=== PATIENT | female | born 1985 | race Hispanic/Latino ===

== ENCOUNTER 2023-08-22 19:45 | Emergency (ER) | payer BC ==
[2023-08-22] MEDS ORDERED: Hydrocodone-Acetamin 15 ML UDCUP PO SCH (21:00)
[2023-08-22] MEDS ORDERED: Hydrocodone-Acetamin 15 ML UDCUP ONE (21:08)
[2023-08-22 21:09] LABS: SARS-CoV-2 NAA Rapid Test Not Detected (NotDetected)
[2023-08-22] MEDS ORDERED: Ipratropium/Albuterol 3 ML NEB ONE (21:16)
== END 2023-08-22 23:23 | disposition home or self-care (01) ==
LOC: CSHERS 19:45
DX: J20.9 Acute bronchitis, unspecified (principal); Z20.822 Contact with and (suspected) exposure to COVID-19
CPT/HCPCS: 71046; 93005; J7620

== ENCOUNTER 2023-10-15 14:57 | Emergency (ER) | payer BC ==
[2023-10-15 15:57] LABS: #Eosinphils 0.2 10x3/uL (0.0-0.5); #Monocytes 0.7 10x3/uL (0.0-1.1); #Neutrophils 4.6 10x3/uL (1.5-8.4); %Basophils 0.5 % (0.0-2.0); %Eosinophils 2.6 % (0.0-6.0); %Lymphocytes 29.1 % (18.0-47.0); %Monocytes 8.6 % (0.0-10.0); %Neutrophils 58.8 % (40.0-75.0); Hematocrit 38.3 % (34.9-44.5); Hemoglobin 12.7 g/dL (12.0-15.5); Mean Corpuscular HGB CONC 33.2 g/dL (32.0-36.0); Mean Corpuscular Hemoglobin 31.3 pg (27.0-33.0); Mean Corpuscular Volume 94.3 fl (81.6-98.3); Mean Platelet Volume 10.2 fl (7.4-10.4); Platelet Count 246 10x3/uL (150-450); RBC Distribution Width 12.8 % (11.5-14.5); Red Blood Cell (RBC) Count 4.06 10x6/uL (3.90-5.03); White Blood Cell (WBC) Count 7.8 10x3/uL (3.5-10.5)
[2023-10-15] MEDS ORDERED: Ketorolac Tromethamine 30 MG (1 mL) VIAL ONE (16:04)
[2023-10-15] MEDS ORDERED: Lorazepam 2 MG/ML VIAL ONE (16:04)
[2023-10-15 16:07] LABS: BHCG - Serum Negative (NEGATIVE); Pregs Control Background? CLEAR/WHITE (CLR/WHITE); Pregs Control Bar Appear? YES (CONTROL BAR)
[2023-10-15 16:13] LABS: ALT (SGPT) 21 U/L (8-55); AST (SGOT) 40 U/L (5-34); Albumin 3.9 g/dL (3.5-5.0); Alkaline Phosphatase 52 U/L (40-110); Anion Gap 10 mmol/L (10-20); BUN (Urea Nitrogen) 9 mg/dL (7.0-18.7); CK (CPK) 1471 U/L (29-168); Calc. Creatinine Clearance 0 mL/min (70-130); Calcium 8.6 mg/dL (7.8-10.44); Carbon Dioxide 24 mmol/L (22-29); Chloride 107 mmol/L (98-107); Estimated GFR 90; Globulin 3.4 g/dL (2.4-3.5); Glucose 98 mg/dL (70-105); Protein, Total 7.3 g/dL (6.0-8.3)
[2023-10-15 16:17] LABS: Potassium 4.3 mmol/L (3.5-5.1); Sodium 137 mmol/L (136-145)
== END 2023-10-15 18:15 | disposition home or self-care (01) ==
LOC: CSHERS 14:57
DX: M62.82 Rhabdomyolysis (principal)
CPT/HCPCS: 36415; 80053; 82550; 84703; 85025; 93970; 96374; 96375; J1885; J2060

== ENCOUNTER 2024-02-05 12:39 | Observation (INO) | payer BC ==
[2024-02-05 13:45] LABS: ALT (SGPT) 12 U/L (8-55); AST (SGOT) 14 U/L (5-34); Albumin 3.7 g/dL (3.5-5.0); Alkaline Phosphatase 63 U/L (40-110); Anion Gap 13 mmol/L (10-20); BUN (Urea Nitrogen) 8 mg/dL (7.0-18.7); Bilirubin, Total 1.3 mg/dL (0.2-1.2); Calc. Creatinine Clearance 0 mL/min (70-130); Calcium 9.1 mg/dL (7.8-10.44); Carbon Dioxide 22 mmol/L (22-29); Chloride 104 mmol/L (98-107); Estimated GFR 93; Globulin 3.8 g/dL (2.4-3.5); Glucose 92 mg/dL (70-105); Potassium 3.9 mmol/L (3.5-5.1); Protein, Total 7.5 g/dL (6.0-8.3); Sodium 135 mmol/L (136-145)
[2024-02-05 13:53] LABS: #Basophils 0.02 10x3/uL (0.0-0.2); #Eosinphils 0.08 10x3/uL (0.0-0.5); #Monocytes 0.56 10x3/uL (0.0-1.1); #Neutrophils 4.42 10x3/uL (1.5-8.4); %Basophils 0.3 % (0.0-2.0); %Eosinophils 1.2 % (0.0-6.0); %Lymphocytes 21.2 % (18.0-47.0); %Monocytes 8.7 % (0.0-10.0); %Neutrophils 68.3 % (40.0-75.0); Hematocrit 37.5 % (34.9-44.5); Hemoglobin 12.7 g/dL (12.0-15.5); Mean Corpuscular HGB CONC 33.9 g/dL (32.0-36.0); Mean Corpuscular Hemoglobin 31.9 pg (27.0-33.0); Mean Corpuscular Volume 94.2 fl (81.6-98.3); Platelet Count 194 10x3/uL (150-450); RBC Distribution Width 12.8 % (11.5-14.5); Red Blood Cell (RBC) Count 3.98 10x6/uL (3.90-5.03); White Blood Cell (WBC) Count 6.5 10x3/uL (3.5-10.5)
[2024-02-05] MEDS ORDERED: Dicyclomine 20 MG/2 ML VIAL ONE (14:20)
[2024-02-05 15:26] LABS: Bilirubin Neg (Negative); Blood, Urine 150 (Negative); Clarity Clear (Clear); Glucose, Urine (Dipstick) Normal (Negative); Ketone, Urine Negative (Negative); Leukocyte Negative (Negative); Nitrite Negative (Negative); Protein, Urine (Dipstick) Negative (Neg-Trace); Specific Gravity, Urine 1.025 (1.005-1.030); Urobilinogen Normal mg/dL (Less than 2)
[2024-02-05 15:34] LABS: CAUTI Indications for Culture Dysuria,urgency,freq; Squamous Epithelial 0-3 HPF (0-3); WBC/HPF 0-3 HPF (0-3)
[2024-02-05 15:35] LABS: Bacteria/HPF Rare-Few HPF (None Seen); Mucous/LPF Rare LPF (<2+)
[2024-02-05 15:36] LABS: Urine Culture Reflex No No
[2024-02-05] MEDS ORDERED: TETANUS, DIPHTHERIA TOX,ADULT (TDVAX) 0.5 ML VIAL IM ONE (16:19)
[2024-02-05] MEDS ORDERED: Morphine 4 MG/ML VIAL SLOW IVP PRN (16:19)
[2024-02-05] MEDS ORDERED: Ondansetron PF 4 MG/2 ML Vial IVP PRN (16:19)
[2024-02-05] MEDS ORDERED: Ondansetron ODT 4 MG TAB PO PRN (16:19)
[2024-02-05 17:42] LABS: Pregnancy Test - Urine (BHCG) Negative (Negative); Pregu Control Background? CLEAR/WHITE (CLR/WHITE); Pregu Control Bar Appear? YES (CONTROL BAR); Specific Gravity 1.025 (1.002-1.036)
[2024-02-05 18:18] VITALS: BMI 37.5
[2024-02-05] MEDS: Sodium Chloride 0.9% 1,000 ML IV SCH (19:15)
[2024-02-05] MEDS: LevoFLOXacin 500 mg/D5W 500 MG in Premix 1 BAG IVPB SCH (20:18)
[2024-02-05] MEDS: Ketorolac Tromethamine 30 MG (1 mL) VIAL IVP SCH (20:18)
[2024-02-05] MEDS: Acetaminophen 500 MG TAB PO SCH (20:19)
[2024-02-05] MEDS: Enoxaparin 40 MG (0.4 mL) SYRINGE SC SCH (20:19)
[2024-02-05] MEDS: Docusate 100 MG CAP PO SCH (20:19)
[2024-02-05] MEDS: Famotidine 20 MG TAB PO SCH (20:20)
[2024-02-06] MEDS: Ketorolac Tromethamine 30 MG (1 mL) VIAL IVP SCH (00:27)
[2024-02-06 03:58] LABS: ALT (SGPT) 10 U/L (8-55); AST (SGOT) 12 U/L (5-34); Albumin 2.9 g/dL (3.5-5.0); Alkaline Phosphatase 50 U/L (40-110); Anion Gap 11 mmol/L (10-20); BUN (Urea Nitrogen) 7 mg/dL (7.0-18.7); Bilirubin, Total 0.9 mg/dL (0.2-1.2); Calc. Creatinine Clearance 156 mL/min (70-130); Carbon Dioxide 22 mmol/L (22-29); Chloride 108 mmol/L (98-107); Estimated GFR 95; Globulin 3.3 g/dL (2.4-3.5); Glucose 90 mg/dL (70-105); Potassium 3.5 mmol/L (3.5-5.1); Protein, Total 6.2 g/dL (6.0-8.3); Sodium 137 mmol/L (136-145)
[2024-02-06] MEDS ORDERED: Ketorolac Tromethamine 30 MG (1 mL) VIAL IVP SCH (06:00)
[2024-02-06] MEDS: Prenatal Vitamin 1 TAB PO SCH (08:44)
[2024-02-06] MEDS: diphenhydrAMINE 25 MG CAP PO SCH (12:02)
[2024-02-06] MEDS ORDERED: Bupivacaine PF 0.5% 30 ML VIAL ONE (12:55)
[2024-02-06] MEDS ORDERED: EPINEPHrine 1 MG/ML VIAL ONE (12:55)
[2024-02-06] MEDS ORDERED: Glucagon 1 MG/ML KIT ONE (12:55)
[2024-02-06] MEDS ORDERED: Iopamidol 30 ML ONE (12:55)
[2024-02-06] MEDS ORDERED: fentaNYL 50 mcg/mL 1 mL Vial ONE (12:56)
[2024-02-06] MEDS ORDERED: PROPOFOL 20 ML ONE (12:56)
[2024-02-06] MEDS ORDERED: Lidocaine 1% PF 5 ML VIAL ONE (12:57)
[2024-02-06] MEDS ORDERED: Rocuronium Bromide 10 MG/ML (10ML VIAL) ONE (12:57)
[2024-02-06] MEDS ORDERED: Ondansetron PF 4 MG/2 ML Vial ONE (13:31)
[2024-02-06] MEDS ORDERED: Dexamethasone 20 MG/5 ML VIAL ONE (13:31)
[2024-02-06] MEDS ORDERED: ePHEDrine Sulfate 50 MG/10 ML VIAL ONE (13:38)
[2024-02-06] MEDS ORDERED: SUGAMMADEX SODIUM 200 MG/2 ML VIAL ONE (14:01)
[2024-02-06] MEDS: traMADol HCl 50 MG TAB PO PRN (15:31)
[2024-02-06] MEDS: Ibuprofen 600 MG TAB PO PRN (16:58)
[2024-02-06] MEDS ORDERED: LevoFLOXacin 500 mg/D5W 500 MG in Premix 1 BAG IVPB SCH (20:00)
[2024-02-06 20:02] VITALS: BP 109/66; TEMP 98
== END 2024-02-06 20:18 | disposition home or self-care (01) ==
LOC: CSHERS 12:39 → CSHTELE 16:16 → INTOOBSV 16:16
PROVIDERS: ADMIT Specialist; ATTEND Specialist
PROC: 0FT44ZZ Resection of Gallbladder, Percutaneous Endoscopic Approach (ICD-10-PCS; principal; 2024-02-06)
PROC: BF532Z0 Other Imaging of Gallbladder and Bile Ducts using Fluorescing Agent, Intraoperative (ICD-10-PCS; 2024-02-06)
DX: K80.12 Calculus of gallbladder with acute and chronic cholecystitis without obstruction (principal); E80.7 Disorder of bilirubin metabolism, unspecified; Z88.8 Allergy status to other drugs, medicaments and biological substances
CPT/HCPCS: 36415; 47532; 76705; 80053; 81001; 81025; 83690; 85025; 88304; 96372; C1889; J0171; J0665; J1100; J1611; J1650; J1885; J1956; J2405; J2704; J3010; J7050; Q9967

== ENCOUNTER 2024-02-12 09:30 | Emergency (ER) | payer BC ==
[2024-02-12 10:09] LABS: #Basophils 0.04 10x3/uL (0.0-0.2); #Eosinphils 0.28 10x3/uL (0.0-0.5); #Monocytes 0.65 10x3/uL (0.0-1.1); %Basophils 0.4 % (0.0-2.0); %Eosinophils 2.8 % (0.0-6.0); %Monocytes 6.4 % (0.0-10.0); %Neutrophils 65.9 % (40.0-75.0); Hematocrit 38.7 % (34.9-44.5); Hemoglobin 13.1 g/dL (12.0-15.5); Mean Corpuscular HGB CONC 33.9 g/dL (32.0-36.0); Mean Corpuscular Hemoglobin 32.1 pg (27.0-33.0); Mean Corpuscular Volume 94.9 fL (81.6-98.3); Mean Platelet Volume 9.5 fL (7.4-10.4); Platelet Count 266 10x3/uL (150-450); RBC Distribution Width 12.5 % (11.5-14.5); Red Blood Cell (RBC) Count 4.08 10x6/uL (3.90-5.03); White Blood Cell (WBC) Count 10.2 10x3/uL (3.5-10.5)
[2024-02-12 10:19] LABS: BHCG - Serum Negative (NEGATIVE); Pregs Control Background? CLEAR/WHITE (CLR/WHITE); Pregs Control Bar Appear? YES (CONTROL BAR)
[2024-02-12] MEDS ORDERED: Meclizine HCl 25 MG TAB ONE (10:22)
[2024-02-12] MEDS ORDERED: diphenhydrAMINE 50 MG/ML VIAL ONE (10:22)
[2024-02-12] MEDS ORDERED: Dexamethasone 10 MG/ML VIAL ONE (10:22)
[2024-02-12] MEDS ORDERED: Metoclopramide HCl 10 MG (2 mL) VIAL ONE (10:22)
[2024-02-12 10:31] LABS: ALT (SGPT) 25 U/L (8-55); Albumin 3.6 g/dL (3.5-5.0); Alkaline Phosphatase 76 U/L (40-110); Anion Gap 16 mmol/L (10-20); BUN (Urea Nitrogen) 17 mg/dL (7.0-18.7); Bilirubin, Total 0.4 mg/dL (0.2-1.2); Calc. Creatinine Clearance 0 mL/min (70-130); Calcium 9.1 mg/dL (7.8-10.44); Carbon Dioxide 19 mmol/L (22-29); Chloride 108 mmol/L (98-107); Estimated GFR 90; Globulin 4.2 g/dL (2.4-3.5); Glucose 110 mg/dL (70-105); Lipase 22 U/L (8-78); Potassium 4.6 mmol/L (3.5-5.1); Protein, Total 7.8 g/dL (6.0-8.3); Sodium 138 mmol/L (136-145)
[2024-02-12 10:33] LABS: AST (SGOT) 21 U/L (5-34)
[2024-02-12] MEDS ORDERED: Magnevist 469MG/ML 20 ML VIAL ONE (10:54)
[2024-02-12 14:45] LABS: Bilirubin Neg (Negative); Blood, Urine 150 (Negative); Clarity Slightly Cloudy (Clear); Glucose, Urine (Dipstick) Normal (Negative); Ketone, Urine Negative (Negative); Leukocyte 25 (Negative); Nitrite Negative (Negative); Protein, Urine (Dipstick) Negative (Neg-Trace); Urobilinogen Normal mg/dL (Less than 2)
[2024-02-12 14:58] LABS: CAUTI Indications for Culture Fever or rigors
[2024-02-12 15:02] LABS: Bacteria/HPF 2+ HPF (None Seen)
[2024-02-12 15:03] LABS: Mucous/LPF 2+ LPF (<2+)
[2024-02-12 15:11] LABS: Urine Culture Reflex No No
== END 2024-02-12 13:51 | disposition home or self-care (01) ==
LOC: CSHERS 09:30
DX: R42 Dizziness and giddiness (principal)
CPT/HCPCS: 70450; 70553; 71045; 80053; 81001; 83690; 84703; 85025; 96361; 96374; 96375; A9579; J1100; J1200; J2765